=== PATIENT | male | born 1975 | race Caucasian/White ===

== ENCOUNTER 2017-12-04 21:09 | Emergency (ER) | payer BC ==
[~2017-12-04] VITALS: Ht 170.2 cm; Wt 72.6 kg
--- NOTE | 2017-12-04 21:13 | NUR ---
PT AMBULATORY TO ER BED 1. BIB SELF; SENT BY DR LAUREN FOR HIGH POTASSIUM. PT PLACED IN GOWN AND ON VIDEO TAPE EDITOR. VSS/RESP EVEN UNLABORED/NAD NOTED/SKIN WARM AND DRY/AFEBRILE/DENIES N-V-D/AOX4. AWAITNG MD WHITLOCK.
[2017-12-04] MEDS ORDERED: SODIUM BICARBONATE SYR 50 MEQ/50 ML DISP.SYRIN ONE (21:23)
[2017-12-04] MEDS ORDERED: DEXTROSE 50%-WATER 50 ML DISP.SYRIN ONE (21:23)
[2017-12-04] MEDS ORDERED: INSULIN REGULAR, HUMAN 100 UNIT/ML 10 ML VIAL ONE (21:23)
--- NOTE | 2017-12-04 21:24 | NUR ---
EMT AT BEDSIDE FOR EVAL.
[2017-12-04] MEDS ORDERED: DEXTROSE 50%-WATER 50 ML DISP.SYRIN IV ONE (21:30)
[2017-12-04] MEDS ORDERED: ALBUTEROL FS 2.5 MG/3 ML VIAL.NEB NEB ONE (21:30)
[2017-12-04] MEDS ORDERED: SODIUM BICARBONATE SYR 50 MEQ/50 ML DISP.SYRIN IV ONE (21:30)
[2017-12-04] MEDS ORDERED: INSULIN REGULAR, HUMAN 100 UNIT/ML 10 ML VIAL IV ONE (21:30)
--- NOTE | 2017-12-04 21:30 | NUR ---
17G IV TO R HAND X 1 ATTEMPT USING ASEPTIC TECH, BLOOD HANDED OVER TO THE LAB AT BEDSIDE. IV FLUSHES EASILY WITH NS, NO S/S INFILTRATION NOTED AT THIS TIME.
[2017-12-04] MEDS ORDERED: ALBUTEROL FS 2.5 MG/3 ML VIAL.NEB ONE (21:38)
--- NOTE | 2017-12-04 21:41 | NUR ---
RT AT BEDSIDE FOR VASYL SHEPHERD
[2017-12-04 21:45] LABS: BASOPHILS # (AUTO) 0.1 /CMM (0.0-0.2); BASOPHILS % (AUTO) 1.2 % (0.0-2.0); EOSINOPHILS % (AUTO) 5.2 % (0.0-6.0); HEMATOCRIT 36 % (39-51); HEMOGLOBIN 11.6 g/dL (13.5-17.5); LYMPHOCYTES # (AUTO) 1.8 /CMM (0.8-4.8); LYMPHOCYTES % (AUTO) 23.5 % (20.0-44.0); MEAN CORPUSCULAR HEMOGLOBIN 32 PG (26.0-33.0); MEAN CORPUSCULAR HGB CONC 32 g/dl (31.0-36.0); MEAN CORPUSCULAR VOLUME 98 fL (80-96); MONOCYTES # (AUTO) 0.9 /CMM (0.1-1.30); NEUTROPHILS # (AUTO) 4.5 /CMM (1.8-8.9); NEUTROPHILS % (AUTO) 58.1 % (43.0-81.0); PLATELET COUNT (AUTO) 262 /CMM (150-450); RDW COEFFICIENT OF VARIATION 14.4 (11.5-15.0); RED BLOOD CELL COUNT(AUTO) 3.66 MIL/uL (4.5-6.0); WHITE BLOOD COUNT (AUTO) 7.8 K/uL (4.3-11.0)
[2017-12-04 21:55] LABS: ALANINE AMINOTRANSFERASE 10 U/L (12-78); ALBUMIN 3.7 g/dL (3.4-5.0); ALKALINE PHOSPHATASE 79 U/L (46-116); BILIRUBIN,DIRECT 0.1 mg/dL (0.0-0.2); BILIRUBIN,TOTAL 0.4 mg/dL (0.2-1.0); CALCIUM, SERUM 9.3 mg/dL (8.5-10.1); CARBON DIOXIDE 25 mmol/L (21-32); CHLORIDE 98 mmol/L (98-107); GLUCOSE 121 mg/dL (74-106); POTASSIUM 5.8 mmol/L (3.5-5.1); SODIUM SERUM 141 mmol/L (136-145); TOTAL PROTEIN, SERUM 7.1 g/dL (6.4-8.2)
[2017-12-04 21:57] LABS: INR 0.94 (0.87-1.13); TROPONIN I < 0.017 ng/mL (0.00-0.056)
[2017-12-04 22:07] LABS: CREATININE 16.5 mg/dL (0.6-1.3); UREA NITROGEN, BLOOD 86 mg/dL (7-18)
--- NOTE | 2017-12-04 22:09 | NUR ---
CALLED [facility]
[2017-12-04 22:14] LABS: ASPARTATE AMINOTRANSFERASE 3 U/L (15-37)
[2017-12-04] MEDS ORDERED: LISI-603 PO (22:21)
[2017-12-04] MEDS ORDERED: CARV12.52 PO (22:24)
[2017-12-04] MEDS ORDERED: FURO80TA85 PO (22:24)
[2017-12-04] MEDS ORDERED: AMLO10TA2 PO (22:24)
[2017-12-04] MEDS ORDERED: CINA30TA2 PO (22:25)
[2017-12-04] MEDS ORDERED: SODIUM POLYSTYRENE SULFONATE 15 G/60 ML BOTTLE ONE (22:28)
[2017-12-04] MEDS ORDERED: SODIUM POLYSTYRENE SULFONATE 15 G/60 ML BOTTLE PO ONE (22:30)
--- NOTE | 2017-12-04 22:56 | NUR ---
IV removed. Catheter intact and site benign. Pressure and 4x4 applied to site. No bleeding noted. Patient discharged to home in stable condition. Written and verbal after care instructions given. Patient verbalizes understanding of instruction. Patient is awake and alert to self, day, and place. Patient ambulatory with a steady gait.
[2017-12-04 22:59] VITALS: BP 146/97
== END 2017-12-04 23:00 | disposition home or self-care (01) ==
LOC: ER 21:13
DX: E87.5 Hyperkalemia (principal); I12.0 Hypertensive chronic kidney disease with stage 5 chronic kidney disease or end stage renal disease; N18.6 End stage renal disease; Z99.2 Dependence on renal dialysis; Z79.899 Other long term (current) drug therapy
CPT/HCPCS: 36415; 71045; 80048; 80076; 82962; 84484; 85025; 85730; 93005; 94640; 96374; 96375; 99285; A4606; J1815; J3490; Z7610